=== PATIENT | male | born 1950 | race Caucasian/White ===

== ENCOUNTER 2016-10-20 11:15 | Outpatient (CLI) | payer BC | END 2016-10-20 23:59 | disposition home or self-care (01) | LOC: WOU 11:15 | PROVIDERS: ATTEND Surgery | PROC: 2W0DX1Z Change Splint on Left Lower Arm (ICD-10-PCS; principal; 2016-10-20) | DX: S61.512D Laceration without foreign body of left wrist, subsequent encounter (principal); W31.2XXD Contact with powered woodworking and forming machines, subsequent encounter; Z88.6 Allergy status to analgesic agent; Z88.0 Allergy status to penicillin; Z87.81 Personal history of (healed) traumatic fracture; K21.9 Gastro-esophageal reflux disease without esophagitis | CPT/HCPCS: 29125; A6253; A6402 ==

== ENCOUNTER 2016-11-06 15:05 | Outpatient (CLI) | payer BC | END 2016-11-06 23:59 | disposition home or self-care (01) | LOC: WOU 15:05 | PROVIDERS: ATTEND Surgery | DX: S61.512D Laceration without foreign body of left wrist, subsequent encounter (principal); W31.2XXD Contact with powered woodworking and forming machines, subsequent encounter; Z88.6 Allergy status to analgesic agent; Z88.0 Allergy status to penicillin; K21.9 Gastro-esophageal reflux disease without esophagitis | CPT/HCPCS: G0463 ==